=== PATIENT | female | born 1950 | race Caucasian/White ===

== ENCOUNTER 2018-12-19 06:26 | Day surgery (SDC) | payer MEDICARE, OTHER ==
[2018-12-18 13:09] LABS: Basophils # (auto) 0.1 uL; Basophils % (auto) 0.7 % (0.0-2.0); Eosinophils # (auto) 0.1 uL; Eosinophils % (auto) 1.5 % (0.0-7.0); Hematocrit 36.4 % (36.0-46.0); Hemoglobin 11.7 g/dL (12.2-16.2); Lymphocytes # (auto) 1.8 uL; Lymphocytes % (auto) 21.2 % (10.0-50.0); Mean Corpuscular Hemoglobin 28.2 pg (28.0-32.0); Mean Corpuscular Hgb Conc. 32.1 g/dL (32.0-36.0); Mean Corpuscular Volume 87.9 fL (80.0-100.0); Monocytes # (auto) 0.4 uL; Monocytes % (auto) 4.4 % (0.0-12.0); Neutrophils # (auto) 6.1 uL; Neutrophils % (auto) 72.2 % (37.0-80.0); Nucleated Red Blood Cells % 0.1 %; Platelet Count (auto) 319 10^3/uL (140-450); Red Blood Cells 4.14 10^6/uL (4.0-5.20); Red Cell Distribution Width 14.2 % (11.8-14.3); White Blood Cell 8.4 10^3/uL (4.4-10.8)
[2018-12-18 13:15] LABS: Urine Bacteria FEW /hpf (None Seen); Urine Blood Negative /uL (Negative); Urine Mucus FEW (None Seen); Urine Specific Gravity 1.022 (1.001-1.035); Urine WBC 2 /hpf (0 - 5)
[2018-12-18 13:26] LABS: INR < 0.93 (0.9-1.15); Partial Thromboplastin Time 24.5 sec (23.64-32.05)
[2018-12-18 13:37] LABS: Albumin 3.6 g/dL (3.4-5.0); Calcium 9.4 mg/dL (8.5-10.1); Potassium 4.8 mmol/L (3.5-5.1)
[2018-12-18 13:40] LABS: BUN/Creatinine Ratio 16.3; Bilirubin, Total 0.3 mg/dL (0.2-1.0); Total Protein 8.2 g/dL (6.4-8.2)
[~2018-12-19] VITALS: Ht 154.9 cm; Wt 78.5 kg
[~2018-12-19 06:26] MED LIST: ALPR1TAB7 PO; ASPI1TAB PO; BUPR150T6 PO; CETI1TAB36 PO; CYCL5TAB PO; EZET10TA6 PO; GABA300C PO; HYDR-531 PO; INSU1.2I SC; INSU100I4 SC; LEVO50TA7 PO; METF-372 PO; OXY20CRT PO; VENL150T19 PO
[2018-12-19] MEDS ORDERED: ceFAZolin 1GM/50ML 50 ML IV ONE (06:46)
[2018-12-19] MEDS ORDERED: SUCCINYLCHOLINE CHLORIDE 20 MG/ML 10ML VIAL IV ONE (07:01)
[2018-12-19] MEDS ORDERED: DOXAPRAM HCL 20 MG/ML 20ML VIAL INJ IV ONE (07:01)
[2018-12-19] MEDS ORDERED: MEPERIDINE HCL (25 MG/ML) 1ML VIAL ONE (07:07)
[2018-12-19] MEDS ORDERED: SODIUM CHLORIDE LOCK 10 ML ONE (07:09)
[2018-12-19] MEDS ORDERED: KETOROLAC TROMETH 60MG/2ML VIAL ONE (07:09)
[2018-12-19] MEDS ORDERED: ROCURONIUM 10MG/ML 10ML VIAL IV ONE (07:09)
[2018-12-19] MEDS ORDERED: PROPOFOL 10 MG/ML 20 ML IV ONE (07:09)
[2018-12-19] MEDS ORDERED: MIDAZOLAM HCL 1MG/1ML-2 ML VIAL ONE (07:09)
[2018-12-19] MEDS ORDERED: fentaNYL CITRATE 100 MCG/2 ML VL ONE (07:09)
[2018-12-19] MEDS ORDERED: BUPIVACAINE 0.25% INJ 50ML VIAL ONE (07:23)
[2018-12-19] MEDS ORDERED: MORPHINE SULF(PF) 0.5MG/ML 10ML VIAL ONE (07:24)
[2018-12-19] MEDS ORDERED: ACCU-CHEK COMFORT CURVE STRIP VI ONE (07:30)
[2018-12-19] MEDS ORDERED: KETOROLAC TROMETH 30 MG/ML 1ML VIAL IV ONE (07:30)
[2018-12-19] MEDS ORDERED: METOCLOPRAMIDE HCL 5MG/ml INJ 2ml VIAL IV ONE (07:30)
[2018-12-19] MEDS ORDERED: PROPOFOL 100 ML IV ONE (07:31)
[2018-12-19] MEDS ORDERED: ONDANSETRON HCL 4 MG/2 ML VIAL IV ONE (07:50)
[2018-12-19] MEDS ORDERED: ALBUTEROL SULF 2.5 MG/0.5ML(0.5%) NEB SOLN NEB ONE (09:00)
[2018-12-19] MEDS ORDERED: IPRATROPIUM BROM 0.5 MG/2.5ML INH SOL NEB ONE (09:00)
[2018-12-19] MEDS: HYDROmorphone HCL 2 MG/ML VL IV PRN ×2 (09:25→09:35)
[2018-12-19 09:50] VITALS: BP 135/69
== END 2018-12-19 10:10 | disposition home or self-care (01) ==
LOC: SUR 06:26
PROVIDERS: ATTEND Orthopaedic Surgery
DX: S83.232A Complex tear of medial meniscus, current injury, left knee, initial encounter (principal); M65.862 Other synovitis and tenosynovitis, left lower leg; M94.262 Chondromalacia, left knee; M71.22 Synovial cyst of popliteal space [Baker], left knee; E66.9 Obesity, unspecified; E11.9 Type 2 diabetes mellitus without complications; F32.9 Major depressive disorder, single episode, unspecified; D64.9 Anemia, unspecified; E03.9 Hypothyroidism, unspecified; Z79.4 Long term (current) use of insulin; Z79.01 Long term (current) use of anticoagulants; Z79.84 Long term (current) use of oral hypoglycemic drugs; Z79.899 Other long term (current) drug therapy; Z87.891 Personal history of nicotine dependence; Z68.32 Body mass index [BMI] 32.0-32.9, adult; X58.XXXA Exposure to other specified factors, initial encounter; Y93.89 Activity, other specified; Y92.89 Other specified places as the place of occurrence of the external cause; Y99.8 Other external cause status
CPT/HCPCS: 29876; 29881; 36415; 80053; 81001; 82962; 83036; 85025; 85610; 85730; 93005; 94640; J0330; J0690; J1170; J1885; J2175; J2250; J2270; J2405; J2704; J3010; J7611; J7644; J3490